=== PATIENT | male | born 1945 | race Caucasian/White ===

== ENCOUNTER → 2017-01-05 | Outpatient (CLI) | payer MEDICARE, OTHER ==
[~2017-01-05] MED LIST: ALBU0.63 NEB; ALBU1.25 NEB; ALPR-475 PO; ASPI-515 PO; ASPI-621 PO; ATOR10TA9 PO; BUDE10.2 INH; CEFU500T PO; CITA40TA5 PO; DIPH25CA61 PO; DOXY100T PO; ESOM40CA PO; FLUT1DIS5 IH; IGG IV; IPRA4AER INH; LACT-90 GT; LACT10SO5 GT; LEVO100T PO; LEVO100T5 PO; LEVO500T33 PEG; METH-356 PO; NEO/5DRO2 TP; OXYC-302 PO; OXYGEN INH; POLY119P19 PO; POLY17PO3 PO; PRED10TA PO; ROPI0.2537 PO; ROPI0.5T PO; TIOT18CA INH; UMEC62.5 INH
== END | disposition home or self-care (01) ==
LOC: CFH 15:48
PROVIDERS: ATTEND Physician Assistant Surgical
DX: C67.8 Malignant neoplasm of overlapping sites of bladder (principal); Z90.6 Acquired absence of other parts of urinary tract
CPT/HCPCS: 71020; 76770

== ENCOUNTER 2017-04-06 08:19 | Day surgery (SDC) | payer MEDICARE, OTHER ==
[~2017-04-06] VITALS: Ht 177.8 cm; Wt 49.0 kg
[2017-04-06] MEDS ORDERED: LACTATED RINGERS 1,000 ML IV SCH (08:55)
[2017-04-06 09:25] VITALS: BP 126/76
[2017-04-06] MEDS ORDERED: PLEASE ENTER HEIGHT AND WEIGHT MC SCH (09:30)
[2017-04-06] MEDS ORDERED: MIDAZOLAM 1 MG/ML, 2ML IV PRN (10:00)
[2017-04-06] MEDS ORDERED: ONDANSETRON 2MG/ML, 2ML IVPush PRN (10:00)
[2017-04-06] MEDS ORDERED: OXYcodone 5 MG/5 ML ORAL.SOL UDC PO PRN (10:00)
[2017-04-06] MEDS ORDERED: HYDROmorphone 1 MG/ML, 1ML IV PRN (10:00)
[2017-04-06] MEDS ORDERED: FENTANYL PF 100 MCG/2ML IV PRN (10:00)
[2017-04-06] MEDS ORDERED: ALBUTEROL SULFATE 2.5 MG/3 ML NPPB PRN (10:00)
[2017-04-06] MEDS ORDERED: LABETALOL 5MG/ML, 20ML IV PRN (10:00)
[2017-04-06] MEDS ORDERED: hydrALAzine 20 MG/ML, 1ML IV PRN (10:00)
[2017-04-06] MEDS ORDERED: PROPOFOL 10 MG/ML, 20ML ONE (10:02)
== END 2017-04-06 12:05 ==
LOC: OUT 08:19
PROVIDERS: ATTEND Internal Medicine Geriatric Medicine
DX: K22.711 Barrett's esophagus with high grade dysplasia (principal); K21.9 Gastro-esophageal reflux disease without esophagitis; J44.9 Chronic obstructive pulmonary disease, unspecified; F41.9 Anxiety disorder, unspecified; E03.9 Hypothyroidism, unspecified; Z85.46 Personal history of malignant neoplasm of prostate; Z85.51 Personal history of malignant neoplasm of bladder; Z98.890 Other specified postprocedural states; Z87.891 Personal history of nicotine dependence; Z88.1 Allergy status to other antibiotic agents; Z88.8 Allergy status to other drugs, medicaments and biological substances
CPT/HCPCS: 43237; 43239; 88305; 93005; J2704; J7120

== ENCOUNTER 2017-04-13 12:36 | Day surgery (SDC) | payer MEDICARE, OTHER ==
[~2017-04-13] VITALS: Ht 177.8 cm; Wt 48.9 kg
[2017-04-13] MEDS ORDERED: LACTATED RINGERS 1,000 ML IV SCH (13:22)
[2017-04-13] MEDS ORDERED: CHOL100014 PO (13:29)
[2017-04-13] MEDS ORDERED: LACT1CAP35 PO (13:29)
[2017-04-13 13:30] VITALS: BP 125/73
[2017-04-13] MEDS ORDERED: LIDOCAINE 1%, 2ML SQ PRN (13:30)
[2017-04-13] MEDS ORDERED: OXYcodone 5 MG/5 ML ORAL.SOL UDC PO PRN (16:00)
[2017-04-13] MEDS ORDERED: ONDANSETRON 2MG/ML, 2ML IVPush PRN (16:00)
[2017-04-13] MEDS ORDERED: HYDROmorphone 1 MG/ML, 1ML IV PRN (16:00)
[2017-04-13] MEDS ORDERED: LABETALOL 5MG/ML, 20ML IV PRN (16:00)
[2017-04-13] MEDS ORDERED: hydrALAzine 20 MG/ML, 1ML IV PRN (16:00)
[2017-04-13] MEDS ORDERED: FENTANYL PF 100 MCG/2ML IV PRN (16:00)
[2017-04-13] MEDS ORDERED: ACETAMINOPHEN 650 MG/20.3 ML UDC ONE (16:31)
[2017-04-13] MEDS ORDERED: ROCURONIUM 10 MG/ML ONE (16:59)
[2017-04-13] MEDS ORDERED: PROPOFOL 10 MG/ML, 20ML ONE (16:59)
[2017-04-13] MEDS ORDERED: SUCCINYLCHOLINE 20 MG/ML, 10ML ONE (16:59)
[2017-04-13] MEDS ORDERED: ACETAMINOPHEN 325 MG TABLET PO ONE (17:00)
== END 2017-04-13 17:50 ==
LOC: OUT 12:36
PROVIDERS: ATTEND Internal Medicine Geriatric Medicine
DX: K22.711 Barrett's esophagus with high grade dysplasia (principal); K21.9 Gastro-esophageal reflux disease without esophagitis; J44.9 Chronic obstructive pulmonary disease, unspecified; E03.9 Hypothyroidism, unspecified; Z85.46 Personal history of malignant neoplasm of prostate; Z85.51 Personal history of malignant neoplasm of bladder; Z98.890 Other specified postprocedural states
CPT/HCPCS: 43270; J0330; J2704; J7120

== ENCOUNTER 2017-06-08 08:05 | Day surgery (SDC) | payer MEDICARE, OTHER ==
[~2017-06-08] VITALS: Ht 180.3 cm; Wt 47.7 kg
[~2017-06-08 08:05] MED LIST changes: +CHOL100014 PO; +LACT1CAP35 PO; -LEVO500T33 PEG; +LEVO500T47 PEG
[2017-06-08] MEDS ORDERED: LACTATED RINGERS 1,000 ML IV SCH (08:56)
[2017-06-08 08:57] VITALS: BP_DIAS 71
[2017-06-08 08:58] VITALS: BP_SYST 120
[2017-06-08] MEDS ORDERED: PROPOFOL 10 MG/ML, 20ML ONE (09:55)
[2017-06-08] MEDS ORDERED: ALBUTEROL SULFATE 2.5 MG/3 ML NPPB PRN (10:00)
[2017-06-08] MEDS ORDERED: ONDANSETRON 2MG/ML, 2ML IVPush PRN (10:00)
[2017-06-08] MEDS ORDERED: METOCLOPRAMIDE 5 MG/ML, 2ML IV PRN (10:00)
[2017-06-08] MEDS ORDERED: LABETALOL 5MG/ML, 20ML IV PRN (10:00)
[2017-06-08] MEDS ORDERED: hydrALAzine 20 MG/ML, 1ML IV PRN (10:00)
[2017-06-08] MEDS ORDERED: MIDAZOLAM 1 MG/ML, 2ML IV PRN (10:00)
[2017-06-08] MEDS ORDERED: OXYcodone 5 MG/5 ML ORAL.SOL UDC PO PRN (10:00)
[2017-06-08] MEDS ORDERED: HYDROmorphone 1 MG/ML, 1ML IV PRN (10:00)
[2017-06-08] MEDS ORDERED: EPHEDRINE 50 MG/ML, 1ML IVPush PRN (10:00)
[2017-06-08] MEDS ORDERED: MEPERIDINE/PF 25MG/0.5ML IVPush PRN (10:00)
[2017-06-08] MEDS ORDERED: FENTANYL PF 100 MCG/2ML IV PRN (10:00)
== END 2017-06-08 12:25 ==
LOC: OUT 08:05
PROVIDERS: ATTEND Internal Medicine
DX: K22.719 Barrett's esophagus with dysplasia, unspecified (principal); K29.50 Unspecified chronic gastritis without bleeding; Z87.891 Personal history of nicotine dependence; Z88.1 Allergy status to other antibiotic agents; Z88.8 Allergy status to other drugs, medicaments and biological substances
CPT/HCPCS: 43270; 88305; J2704; J7120

== ENCOUNTER 2017-08-10 07:47 | Day surgery (SDC) | payer MEDICARE, OTHER ==
[~2017-08-10] VITALS: Ht 177.8 cm; Wt 47.1 kg
[2017-08-10 08:35] VITALS: BP 122/71
[2017-08-10] MEDS ORDERED: LACTATED RINGERS 1,000 ML IV SCH (08:40)
[2017-08-10] MEDS ORDERED: ROCURONIUM 10 MG/ML,10ML ONE (10:17)
[2017-08-10] MEDS ORDERED: SUCCINYLCHOLINE 20 MG/ML, 10ML ONE (10:18)
[2017-08-10] MEDS ORDERED: PROPOFOL 10 MG/ML, 20ML ONE (10:18)
[2017-08-10] MEDS ORDERED: MIDAZOLAM 1 MG/ML, 2ML ONE (10:19)
[2017-08-10] MEDS ORDERED: FENTANYL PF 100 MCG/2ML ONE (10:20)
[2017-08-10] MEDS ORDERED: DEXAMETHASONE 4 MG/ML, 1ML ONE (10:34)
[2017-08-10] MEDS ORDERED: ONDANSETRON 2MG/ML, 2ML ONE (10:34)
[2017-08-10] MEDS ORDERED: ALBUTEROL SULFATE 2.5 MG/3 ML NPPB PRN (11:00)
[2017-08-10] MEDS ORDERED: ACETAMINOPHEN 325 MG TABLET PO PRN (11:00)
[2017-08-10] MEDS ORDERED: hydrALAzine 20 MG/ML, 1ML IV PRN (11:00)
[2017-08-10] MEDS ORDERED: OXYcodone 5 MG/5 ML ORAL.SOL UDC PO PRN (11:00)
[2017-08-10] MEDS ORDERED: FENTANYL PF 100 MCG/2ML IV PRN (11:00)
[2017-08-10] MEDS ORDERED: ONDANSETRON 2MG/ML, 2ML IVPush PRN (11:00)
[2017-08-10] MEDS ORDERED: LABETALOL 5MG/ML, 20ML IV PRN (11:00)
[2017-08-10] MEDS ORDERED: METOPROLOL 1 MG/ML, 5ML IV PRN (11:00)
[2017-08-10] MEDS ORDERED: EPHEDRINE 50 MG/ML, 1ML IVPush PRN (11:00)
[2017-08-10] MEDS ORDERED: HYDROmorphone 1 MG/ML, 1ML IV PRN (11:00)
== END 2017-08-10 13:20 ==
LOC: OUT 07:47
PROVIDERS: ATTEND Internal Medicine
DX: K22.711 Barrett's esophagus with high grade dysplasia (principal); K29.50 Unspecified chronic gastritis without bleeding; K31.89 Other diseases of stomach and duodenum; K21.9 Gastro-esophageal reflux disease without esophagitis
CPT/HCPCS: 43239; 88305; 93005; J0330; J1100; J2250; J2405; J2704; J3010; J7120

== ENCOUNTER 2017-10-26 08:02 | Day surgery (SDC) | payer MEDICARE, OTHER ==
[~2017-10-26] VITALS: Ht 175.3 cm; Wt 42.8 kg
[2017-10-26] MEDS ORDERED: LACTATED RINGERS 1,000 ML IV SCH (09:09)
[2017-10-26 09:12] VITALS: BP 113/67
[2017-10-26] MEDS ORDERED: PROPOFOL 10 MG/ML, 20ML ONE (09:41)
[2017-10-26] MEDS ORDERED: ONDANSETRON 2MG/ML, 2ML ONE (09:41)
[2017-10-26] MEDS ORDERED: LABETALOL 5MG/ML, 20ML ONE (09:41)
[2017-10-26] MEDS ORDERED: FENTANYL PF 100 MCG/2ML IV PRN (11:00)
[2017-10-26] MEDS ORDERED: HYDROcodone/APAP 7.5-325MG/15ML UDC PO PRN (11:00)
[2017-10-26] MEDS ORDERED: ONDANSETRON 2MG/ML, 2ML IVPush PRN (11:00)
[2017-10-26] MEDS ORDERED: ACETAMINOPHEN 325 MG TABLET PO PRN (11:00)
[2017-10-26] MEDS ORDERED: OXYcodone 5 MG/5 ML ORAL.SOL UDC PO PRN (11:00)
== END 2017-10-26 13:20 ==
LOC: OUT 08:02
PROVIDERS: ATTEND Internal Medicine
DX: C16.9 Malignant neoplasm of stomach, unspecified (principal); Z88.1 Allergy status to other antibiotic agents; Z88.8 Allergy status to other drugs, medicaments and biological substances; J44.9 Chronic obstructive pulmonary disease, unspecified; K21.9 Gastro-esophageal reflux disease without esophagitis; F41.9 Anxiety disorder, unspecified; Z85.51 Personal history of malignant neoplasm of bladder; Z85.46 Personal history of malignant neoplasm of prostate
CPT/HCPCS: 43239; 43242; 88305; J2405; J2704; J7120

== ENCOUNTER → 2017-11-05 | Outpatient (CLI) | payer MEDICARE, OTHER | END | disposition home or self-care (01) | LOC: PETCFH 09:39 | PROVIDERS: ATTEND Internal Medicine | DX: K22.719 Barrett's esophagus with dysplasia, unspecified (principal); C80.1 Malignant (primary) neoplasm, unspecified | CPT/HCPCS: 78815; A9552 ==